=== PATIENT | male | born 1935 | race Hispanic/Latino ===

== ENCOUNTER 2016-09-08 17:56 | Emergency (ER) | payer MEDICARE ==
--- NOTE | 2016-09-08 18:43 | Emergency Department Report ---
HPI - General Chief Complaint: Medical Clearance Time Seen by Provider: 09/08/16 18:41 - HPI HPI: Patient is a 80-year-old white male sent from [facility] with weakness and dehydration. [facility] stated for the past 2 or 3 weeks patient has had decreased by mouth intake. He had to supplement his male with ensure. No fever chills or night sweats. History of alcoholic cirrhosis. ED Past Medical Hx - Past Medical History Previous Medical History?: Yes Hx GERD: Yes Hx COPD: Yes Hx Dementia: Yes Additional medical history: anemia, alcoholic liver disease, - Surgical History Past Surgical History?: No - Medications Home Medications: Home Medications Medication Instructions Recorded Confirmed Last Taken Type Cephalexin [Keflex] 500 mg PO Q12HR #20 cap 09/09/16 Unknown Rx ED Review of Systems ROS: Stated complaint: ABNORMAL LABS Other details as noted in HPI Comment: All other systems reviewed and negative Eyes: as per HPI Gastrointestinal: abdominal pain Physical Exam - Physical Exam Physical Exam: Gen. alert and oriented 3 in no distress Head atraumatic normocephalic Eyes PERR LA EOMI Chest regular rate and rhythm normal S1-S2 lungs clear bilaterally Abdomen soft nondistended Back no point tenderness paravertebral tenderness Neuro no focal deficit. Psych normal mood. ED Medical Decision Making - Lab Data Result diagrams: 09/08/16 19:11 09/08/16 19:11 Critical care attestation.: If time is entered above; I have spent that time in minutes in the direct care of this critically ill patient, excluding procedure time. ED Disposition Clinical Impression: Dehydration, Cystitis Disposition: DC-01 TO HOME OR SELFCARE Is pt being admited?: No Does the pt Need Aspirin: No Condition: Stable Instructions: Urinary Tract Infection in Men (ED) Prescriptions: Cephalexin [Keflex] 500 mg PO Q12HR #20 cap Referrals: PRIMARY CARE, [Primary Care Provider] - 3-5 Days
[2016-09-08 19:31] LABS: Basophils % (Auto) 1.1 % (0.0-1.8); Eosinophils % (Auto) 3.5 % (0.0-4.3); Hematocrit 34.9 % (35.5-45.6); Hemoglobin 11.6 gm/dl (11.8-15.2); Mean Corpuscular HGB Conc 33 % (32-34); Mean Corpuscular Hemoglobin 31 pg (28-32); Mean Corpuscular Volume 94 fl (84-94); Platelet Count 297 K/mm3 (140-440); Red Blood Count 3.72 M/mm3 (3.65-5.03); Red Cell Distribution Width 15.5 % (13.2-15.2); White Blood Count 7.9 K/mm3 (4.5-11.0)
[2016-09-08 20:04] LABS: Albumin 2.8 g/dL (3.9-5); Albumin/Globulin Ratio 0.5 %; BUN/Creatinine Ratio 41.42; Bilirubin,Total 0.5 mg/dL (0.1-1.2); Calcium 8.9 mg/dL (8.4-10.2); Chloride 87.3 mmol/L (98-107)
[2016-09-08 20:16] LABS: Potassium 4.3 mmol/L (3.6-5.0)
[2016-09-08 23:24] LABS: Urine Drugs of Abuse Note Disclamer
[2016-09-08] MEDS ORDERED: ROCEPHIN/NS 1 GM/50 ML 1 GM/50 ML BAG IV ONE (23:41)
[2016-09-09 00:15] LABS: Bacteria,Urine 2+ /HPF (Negative); Bilirubin,Urine NEG (Negative); Blood,Urine NEG (Negative); Ketones,Urine NEG (Negative); Leukocyte Esterase,Urine MOD (Negative); Mucus,Urine 3+ /HPF; Nitrite,Urine NEG (Negative); Urobilinogen,Urine < 2.0 mg/dL (<2.0)
[2016-09-09 00:24] LABS: WBC,Urine > 182.0 /HPF (0.0-6.0)
[2016-09-09 03:28] VITALS: BP 133/78
== END 2016-09-09 02:30 | disposition home or self-care (01) ==
LOC: ED 17:56
DX: N30.90 Cystitis, unspecified without hematuria (principal); E86.0 Dehydration; E11.9 Type 2 diabetes mellitus without complications; J44.9 Chronic obstructive pulmonary disease, unspecified
CPT/HCPCS: 36415; 80053; 80307; 81001; 85025; 93005; 93010; 96365; 96366; 99284; J0696

== ENCOUNTER 2017-02-02 11:14 | Inpatient (IN) | payer MEDICARE ==
--- NOTE | 2017-02-02 13:08 | Emergency Department Report ---
ED General Adult HPI - General Chief complaint: Recheck/Abnormal Lab/Rx Stated complaint: CRITICAL LABS Time Seen by Provider: 02/02/17 13:05 Source: patient, EMS Mode of arrival: Stretcher Limitations: Physical Limitation - History of Present Illness Initial comments: This is an 81-year-old man that resides in [facility]. He was sent by his physician for evaluation of a creatinine 1.4 and BUN of 47 on 11/16/2016 which apparently has recently increased I presume. The patient states that he has not been eating or drinking well lately. They have placed him on an sure. He is coherent and able to talk to me at this time. He is not complaining of pain. He denies headache chest pain abdominal pain. He does not complain of any respiratory symptoms he states he has not been coughing. He states that he urinates "a lot" of this appears to be baseline. He does admit to some weakness but states he's been weak for some time. -: Gradual Consistency: constant Improves with: none Worsens with: none Associated Symptoms: denies other symptoms, weakness Treatments Prior to Arrival: none - Related Data Previous Rx's Medication Instructions Recorded Last Taken Type Cephalexin [Keflex] 500 mg PO Q12HR #20 cap 09/09/16 Unknown Rx Allergies Allergy/AdvReac Type Severity Reaction Status Date / Time No Known Allergies Allergy Unverified 09/08/16 18:08 ED Review of Systems ROS: Stated complaint: CRITICAL LABS Other details as noted in HPI Constitutional: weakness. denies: chills, fever Eyes: denies: eye pain, eye discharge, vision change ENT: denies: ear pain, throat pain Respiratory: denies: cough, shortness of breath, wheezing Cardiovascular: denies: chest pain, palpitations Endocrine: no symptoms reported Gastrointestinal: denies: abdominal pain, nausea, diarrhea Genitourinary: frequency. denies: urgency, dysuria Musculoskeletal: denies: back pain, joint swelling, arthralgia Skin: denies: rash, lesions Neurological: denies: headache, weakness, paresthesias Psychiatric: denies: anxiety, depression Hematological/Lymphatic: denies: easy bleeding, easy bruising ED Past Medical Hx - Past Medical History Previous Medical History?: Yes Hx GERD: Yes Hx COPD: Yes Hx Dementia: Yes Additional medical history: anemia, alcoholic liver disease, - Social History Smoking Status: Former Smoker Substance Use Type: Alcohol - Medications Home Medications: Home Medications Medication Instructions Recorded Confirmed Last Taken Type Cephalexin [Keflex] 500 mg PO Q12HR #20 cap 09/09/16 Unknown Rx ED Physical Exam - General Limitations: Physical Limitation General appearance: alert, in no apparent distress - Head Head exam: Present: atraumatic, normocephalic - Eye Eye exam: Present: normal appearance - ENT ENT exam: Present: mucous membranes moist - Neck Neck exam: Present: normal inspection - Respiratory Respiratory exam: Present: normal lung sounds bilaterally. Absent: respiratory distress - Cardiovascular Cardiovascular Exam: Present: regular rate, normal rhythm. Absent: systolic murmur, diastolic murmur, rubs, gallop - GI/Abdominal GI/Abdominal exam: Present: soft, normal bowel sounds. Absent: distended, tenderness, guarding, rebound, rigid - Rectal Rectal exam: Present: deferred - Extremities Exam Extremities exam: Present: normal inspection - Back Exam Back exam: Present: normal inspection - Neurological Exam Neurological exam: Present: alert, oriented X3, CN II-XII intact. Absent: motor sensory deficit - Psychiatric Psychiatric exam: Present: normal affect, normal mood - Skin Skin exam: Present: warm, dry, intact, normal color. Absent: rash ED Course Vital Signs 02/02/17 13:27 Temperature 98.2 F Pulse Rate 85 Respiratory 13 Rate Blood Pressure 131/77 [Right] O2 Sat by Pulse 95 Oximetry - Reevaluation(s) Reevaluation #1: IV fluids. Admitted to the hospital service for further care and evaluation. Antibiotic coverage with ceftriaxone. Awaiting urinanalysis. 02/02/17 15:06 ED Medical Decision Making - Lab Data Result diagrams: 02/02/17 13:42 02/02/17 13:42 Laboratory Results - last 24 hr 02/02/17 02/02/17 02/02/17 13:41 13:42 13:42 WBC 11.1 H RBC 4.61 Hgb 13.7 Hct 41.5 MCV 90 MCH 30 MCHC 33 RDW 15.9 H Plt Count 405 Lymph % (Auto) 29.9 Harrison % (Auto) 8.3 H Eos % (Auto) 4.2 Baso % (Auto) 1.1 Lymph # 3.3 Harrison # 0.9 H Eos # 0.5 H Baso # 0.1 Seg Neutrophils % 56.5 Seg Neutrophils # 6.3 Sodium 131 L Potassium 4.3 Chloride 85.5 L Carbon Dioxide 28 Anion Gap 22 BUN 73 H Creatinine 2.4 H Estimated GFR 26 BUN/Creatinine Ratio 30 Glucose 109 H Calcium 9.2 Total Bilirubin 0.40 Direct Bilirubin < 0.2 AST 19 ALT 12 Alkaline Phosphatase 63 Total Protein 8.5 H Albumin 3.6 L Albumin/Globulin Ratio 0.7 Urine Bilirubin Neg Urine RBC (Auto) 155.0 Critical care attestation.: If time is entered above; I have spent that time in minutes in the direct care of this critically ill patient, excluding procedure time. ED Disposition Clinical Impression: Prerenal azotemia, Acute renal injury, Hyponatremia, Volume depletion Disposition: DC-09 OP ADMIT IP TO THIS HOSP Is pt being admited?: Yes Does the pt Need Aspirin: Yes Condition: Stable Referrals: PRIMARY CARE, [Primary Care Provider] - 3-5 Days Time of Disposition: 15:32
--- NOTE | 2017-02-02 13:57 | XRay Report ---
AP CHEST: HISTORY: Hypertension AP view of the chest demonstrates a normal mediastinal and cardiac contour with clear lungs and normal bony and soft tissue structures. IMPRESSION: Unremarkable AP chest.
[2017-02-02 14:11] LABS: Basophils % (Auto) 1.1 % (0.0-1.8); Eosinophils % (Auto) 4.2 % (0.0-4.3); Hematocrit 41.5 % (35.5-45.6); Hemoglobin 13.7 gm/dl (11.8-15.2); Mean Corpuscular HGB Conc 33 % (32-34); Mean Corpuscular Hemoglobin 30 pg (28-32); Mean Corpuscular Volume 90 fl (84-94); Platelet Count 405 K/mm3 (140-440); Red Blood Count 4.61 M/mm3 (3.65-5.03); Red Cell Distribution Width 15.9 % (13.2-15.2); White Blood Count 11.1 K/mm3 (4.5-11.0)
[2017-02-02 14:23] LABS: Alanine Aminotransferase 12 units/L (7-56); Albumin 3.6 g/dL (3.9-5); Albumin/Globulin Ratio 0.7 %; Alkaline Phosphatase 63 units/L (35-129); Anion Gap 22 mmol/L; BUN/Creatinine Ratio 30; Blood Urea Nitrogen 73 mg/dL (9-20); Calcium 9.2 mg/dL (8.4-10.2); Carbon Dioxide 28 mmol/L (22-30); Chloride 85.5 mmol/L (98-107); Glucose 109 mg/dL (75-100); Potassium 4.3 mmol/L (3.6-5.0); Sodium 131 mmol/L (137-145); Total Protein 8.5 g/dL (6.3-8.2)
[2017-02-02 14:24] LABS: Bilirubin,Direct < 0.2 mg/dL (0-0.2)
[2017-02-02 14:24] LABS: Bacteria,Urine 3+ /HPF (Negative); Bilirubin,Urine NEG (Negative); Blood,Urine MOD (Negative); Ketones,Urine NEG (Negative); Leukocyte Esterase,Urine MOD (Negative); Nitrite,Urine NEG (Negative); Urobilinogen,Urine < 2.0 mg/dL (<2.0)
[2017-02-02 14:33] LABS: WBC,Urine > 182.0 /HPF (0.0-6.0)
[2017-02-02] MEDS ORDERED: ROCEPHIN/NS 1 GM/50 ML 1 GM/50 ML BAG IV ONE (14:33)
[2017-02-02] MEDS ORDERED: MILK OF MAGNESIA PO PRN (15:06)
[2017-02-02] MEDS ORDERED: PROVENTIL IH PRN (15:06)
[2017-02-02] MEDS ORDERED: DULCOLAX PR PRN (15:06)
[2017-02-02] MEDS ORDERED: TYLENOL PO PRN (15:06)
[2017-02-02] MEDS ORDERED: cefTRIAXone 1 GM in NACL 0.9% 20 ML IV ONE (15:30)
[2017-02-02] MEDS ORDERED: BABY ASPIRIN PO ONE (15:33)
--- NOTE | 2017-02-02 16:29 | Ultrasound Report ---
FINAL REPORT EXAM: US RENAL BILAT HISTORY: acute renal failure TECHNIQUE: Ultrasound of the kidneys PRIORS: None. FINDINGS: Examination the kidneys demonstrates both to be normal in size and have normal cortical thickness. The right and left kidneys measure 11.0 cm and 10.7 cm in craniocaudal length, respectively. Both kidneys are echogenic which can be associated with chronic medical renal disease. No evidence for calculi, hydronephrosis, or solid mass is seen in either kidney. Numerous cysts are present in each kidney. On the right, the largest is located in the mid pole measuring 2.1 x 1.5 x 1.9 cm. On the left, the largest is in the upper pole measuring 3.3 x 2.6 x 2.7 cm. All of these cysts have benign characteristics without thickened wall or internal debris. The urinary bladder shows no intraluminal abnormality or wall thickening. Incidental note is made of multiple gallstones in the gallbladder. IMPRESSION: 1. Increased echogenicity of renal cortex bilaterally consistent with chronic medical renal disease 2. Numerous bilateral cysts, likely benign. The largest is in the upper pole of the left kidney. 3. Incidentally noted cholelithiasis
--- NOTE | 2017-02-02 17:51 | History and Physical Report ---
History of Present Illness Date of admission: 02/02/17 15:07 Chief complaint: I urinate a lot, and im feeling weak History of present illness: 81 YO Male resident of [facility] with Dementia, Debility, GERD, COPD, presents to ED for evaluation. Pt is lethargic and has decreased cognition , and unable to provide detailed history. History taken from SNF staff, ED staff , and medical record. SNF staff report decreased oral intake and increased confusion over the past week. EMS notified and patient transported to [facility] for further evaluation and treatment. Pt seen and evaluated in ED and found to have UTI, ARF, and encephalopathy. Pt treated with IV abx, IVF, and admitted to medical floor. No reports of fever, chills, CP, Palpitations, NVD< Syncope, Trauma, BRBPR, Abdominal Pain, Productive cough, or recent ill contacts. Past History Past Medical History: COPD, GERD, other (Dementia, Debility, ) Past Surgical History: No surgical history, Other (reviewed) Social history: single. denies: smoking, alcohol abuse, prescription drug abuse Family history: no significant family history (reviewed) Medications and Allergies Allergies Allergy/AdvReac Type Severity Reaction Status Date / Time No Known Allergies Allergy Unverified 09/08/16 18:08 Home Medications Medication Instructions Recorded Confirmed Last Taken Type Allopurinol [Zyloprim] 600 mg PO HS 02/02/17 02/02/17 Unknown History Budesonide/Formoterol Fumarate 1 puff IH BID 02/02/17 02/02/17 Unknown History [Symbicort 80-4.5 Mcg Inhaler] Colchicine [Mitigare] 0.6 mg PO BID 02/02/17 02/02/17 Unknown History Dorzolamide HCl/Timolol Maleat 1 drop OP Q8H 02/02/17 02/02/17 Unknown History [Cosopt Eye Drops] Gabapentin [Neurontin] 300 mg PO BID 02/02/17 02/02/17 Unknown History Ketoconazole [Nizoral] 1 applic TP QWEEK 02/02/17 02/02/17 Unknown History Latanoprost 0.005% [Xalatan 0.005%] 1 drop OP HS 02/02/17 02/02/17 Unknown History Loratadine [Claritin] 10 mg PO BID 02/02/17 02/02/17 Unknown History Mag Hydrox/Aluminum Hyd/Simeth 30 ml PO Q6H PRN 02/02/17 02/02/17 Unknown History [Mellisa-Lanta Liquid] Magnesium Oxide [Mag-Ox] 400 mg PO BID 02/02/17 02/02/17 Unknown History Melatonin [Melatin] 3 mg PO HS 02/02/17 02/02/17 Unknown History Mirtazapine [Remeron] 15 mg PO HS 02/02/17 02/02/17 Unknown History Salicylic Acid 1 applicatio TP 2XW 02/02/17 02/02/17 Unknown History traMADol [Ultram] 50 mg PO Q8H PRN 02/02/17 02/02/17 Unknown History Active Meds: Active Medications Acetaminophen (Tylenol) 650 mg PO Q4H PRN PRN Reason: Pain MILD(1-3)/Fever >100.5/[place] Albuterol (Proventil) 2.5 mg IH Q4HRT PRN PRN Reason: Shortness Of Breath Bisacodyl (Dulcolax) 10 mg NM QDAY PRN PRN Reason: Constipation unrelieved by MOM Sodium Chloride (Nacl 0.45% 1000 Ml) 1,000 mls @ 100 mls/hr IV DIRECT TRI Magnesium Hydroxide (Milk Of Magnesia) 30 ml PO Q4H PRN PRN Reason: Constipation Ondansetron HCl (Zofran) 4 mg IV Q8H PRN PRN Reason: N/V unrelieved by Reglan Review of Systems ROS unobtainable: due to mental status Exam - Constitutional Vitals: Temp Pulse Resp BP Pulse Ox 98.2 F 76 18 102/58 97 02/02/17 13:27 02/02/17 17:00 02/02/17 17:00 02/02/17 17:00 02/02/17 17:00 General appearance: Present: mild distress, cachectic - EENT Eyes: Present: PERRL ENT: hearing intact, clear oral mucosa - Neck Neck: Present: supple, normal ROM - Respiratory Respiratory effort: normal Respiratory: bilateral: diminished - Cardiovascular Heart Sounds: Present: S1 & S2. Absent: rub, click - Extremities Extremities: pulses symmetrical, No edema Peripheral Pulses: within normal limits - Abdominal General gastrointestinal: Present: soft, non-tender, non-distended, normal bowel sounds Male genitourinary: Present: normal - Integumentary Integumentary: Present: clear, dry - Musculoskeletal Musculoskeletal: generalized weakness - Psychiatric Psychiatric: no intact judgment & insight, no memory intact - Neurologic Neurologic: no gait normal Results - Labs CBC & Chem 7: 02/02/17 13:42 02/02/17 13:42 Labs: Abnormal lab results 02/02/17 02/02/17 02/02/17 Range/Units 13:41 13:42 13:42 WBC 11.1 H (4.5-11.0) K/mm3 RDW 15.9 H (13.2-15.2) % Oxford % (Auto) 8.3 H (0.0-7.3) % Oxford # 0.9 H (0.0-0.8) K/mm3 Eos # 0.5 H (0.0-0.4) K/mm3 Sodium 131 L (137-145) mmol/L Chloride 85.5 L (98-107) mmol/L BUN 73 H (9-20) mg/dL Creatinine 2.4 H (0.8-1.5) mg/dL Glucose 109 H (75-100) mg/dL Total Protein 8.5 H (6.3-8.2) g/dL Albumin 3.6 L (3.9-5) g/dL Urine WBC (Auto) > 182.0 H (0.0-6.0) /HPF Assessment and Plan - Patient Problems (1) UTI (urinary tract infection) Current Visit: Yes Status: Acute Plan to address problem: IV abx, IVF, monitor uop q shift, (2) ARF (acute renal failure) Current Visit: Yes Status: Acute Plan to address problem: IVF resuscitation, supportive care. (3) Hyponatremia syndrome Current Visit: Yes Status: Acute Plan to address problem: IVF resuscitation, repeat bmp (4) Encephalopathy Current Visit: Yes Status: Acute Plan to address problem: treat UTI, IV abx, neuro checks, fall precautions, aspiration precautions. (5) DVT prophylaxis Current Visit: Yes Status: Acute
[2017-02-02] MEDS ORDERED: BABY ASPIRIN ONE (17:52)
[2017-02-02] MEDS ORDERED: ULTRAM PO PRN (18:06)
[2017-02-02] MEDS ORDERED: ALUM-MAG HYDROX-SIMETH 200-200-20MG/5ML PO PRN (18:06)
[2017-02-02] MEDS ORDERED: NON-FORMULARY (Dorzolamide Hcl/Timolol Maleat [Cosopt Eye Drops] 1 DROP) OP SCH (18:15)
[2017-02-02] MEDS ORDERED: SALICYLIC ACID TP SCH (18:15)
[2017-02-02] MEDS: PULMICORT IH SCH (20:00)
[2017-02-02] MEDS: BROVANA NEBU IH SCH (20:00)
[2017-02-02] MEDS ORDERED: ZYLOPRIM PO SCH (22:00)
[2017-02-02] MEDS ORDERED: BUDESONIDE IH SCH (22:00)
[2017-02-02] MEDS ORDERED: NON-FORMULARY (Melatonin [Melatin] 3 MG) PO SCH (22:00)
[2017-02-02] MEDS: COLCHICINE 0.6 MG PO SCH (22:00)
[2017-02-02] MEDS ORDERED: CLARITIN PO SCH (22:00)
[2017-02-02] MEDS ORDERED: FORMOTEROL FUMARATE IH SCH (22:00)
[2017-02-03] MEDS: NEURONTIN PO SCH ×3 (02:22→21:04)
[2017-02-03] MEDS: MAG-OX PO SCH ×3 (02:23→21:04)
[2017-02-03] MEDS: ZYLOPRIM PO SCH ×2 (02:23→21:05)
[2017-02-03] MEDS: REMERON PO SCH ×2 (02:23→21:04)
[2017-02-03] MEDS: XALATAN 0.005% OD SCH (02:24)
[2017-02-03] MEDS: BROVANA NEBU IH SCH ×2 (08:50→20:22)
[2017-02-03] MEDS: PULMICORT IH SCH ×2 (08:50→20:23)
[2017-02-03 10:13] LABS: Calcium 9.2 mg/dL (8.4-10.2); Chloride 88.7 mmol/L (98-107); Potassium 4.2 mmol/L (3.6-5.0)
--- NOTE | 2017-02-03 15:04 | Progress Note ---
Assessment and Plan / UTI (urinary tract infection) IV abx, IVF, monitor uop q shift, follow cx /ARF (acute renal failure) vs CKD IVF resuscitation, supportive care. renal US showed medical renal disease, baseline unknown /Hyponatremia due to dehydration IVF resuscitation, repeat bmp /Acute metabolic/toxic Encephalopathy now at baseline per family treat UTI, IV abx, neuro checks, fall precautions, aspiration precautions. /h/o alcohol abuse no acute issue now /right eye conjunctivitis will place on erythromycin ointment /DVT prophylaxis heparin Physical exam: General appearance: Present: mild distress, cachectic - EENT Eyes: Present: rt eye congestion with purulent discharge at the [place] ENT: hearing intact, clear oral mucosa - Neck Neck: Present: supple, normal ROM - Respiratory Respiratory effort: normal Respiratory: bilateral: diminished - Cardiovascular Heart Sounds: Present: S1 & S2. Absent: rub, click - Extremities Extremities: pulses symmetrical, No edema Peripheral Pulses: within normal limits - Abdominal General gastrointestinal: Present: soft, non-tender, non-distended, normal bowel sounds Male genitourinary: Present: normal - Integumentary Integumentary: Present: clear, dry - Musculoskeletal Musculoskeletal: generalized weakness - Psychiatric Psychiatric: no intact judgment & insight, no memory intact - Neurologic Neurologic: no gait normal Subjective Date of service: 02/03/17 Interval history: pt seen and examined c/o no chest pain or abdominal pain updated family at bedside Objective - Constitutional Vitals: Vital Signs - 12hr 02/03/17 02/03/17 02/03/17 03:16 03:20 03:26 Temperature Pulse Rate 99 H 105 H 100 H Pulse Rate [ Anterior Bilateral Throughout] Respiratory 26 H 18 22 Rate Respiratory Rate [Anterior Bilateral Throughout] Blood Pressure 122/70 122/70 122/70 O2 Sat by Pulse 89 92 89 Oximetry 02/03/17 02/03/17 02/03/17 03:30 03:36 03:40 Temperature Pulse Rate 102 H 102 H 98 H Pulse Rate [ Anterior Bilateral Throughout] Respiratory 24 15 15 Rate Respiratory Rate [Anterior Bilateral Throughout] Blood Pressure 122/70 82/40 82/40 O2 Sat by Pulse 85 94 90 Oximetry 02/03/17 02/03/17 02/03/17 03:46 03:50 03:56 Temperature Pulse Rate 100 H 96 H 96 H Pulse Rate [ Anterior Bilateral Throughout] Respiratory 21 19 21 Rate Respiratory Rate [Anterior Bilateral Throughout] Blood Pressure 82/40 82/40 82/40 O2 Sat by Pulse 87 87 90 Oximetry 02/03/17 02/03/17 02/03/17 04:00 04:06 04:10 Temperature Pulse Rate 96 H 97 H 98 H Pulse Rate [ Anterior Bilateral Throughout] Respiratory 22 20 22 Rate Respiratory Rate [Anterior Bilateral Throughout] Blood Pressure 87/54 87/54 87/54 O2 Sat by Pulse 87 90 88 Oximetry 02/03/17 02/03/17 02/03/17 04:16 04:20 04:26 Temperature Pulse Rate 97 H 95 H 98 H Pulse Rate [ Anterior Bilateral Throughout] Respiratory 22 22 22 Rate Respiratory Rate [Anterior Bilateral Throughout] Blood Pressure 87/54 87/54 87/54 O2 Sat by Pulse 86 93 87 Oximetry 02/03/17 02/03/17 02/03/17 04:30 04:36 04:40 Temperature Pulse Rate 94 H 100 H 90 Pulse Rate [ Anterior Bilateral Throughout] Respiratory 21 18 18 Rate Respiratory Rate [Anterior Bilateral Throughout] Blood Pressure 101/59 101/59 101/59 O2 Sat by Pulse 91 90 88 Oximetry 02/03/17 02/03/17 02/03/17 04:46 04:50 04:56 Temperature Pulse Rate 93 H 93 H 97 H Pulse Rate [ Anterior Bilateral Throughout] Respiratory 18 21 20 Rate Respiratory Rate [Anterior Bilateral Throughout] Blood Pressure 101/59 101/59 101/59 O2 Sat by Pulse 94 91 92 Oximetry 02/03/17 02/03/17 02/03/17 05:00 05:06 05:10 Temperature Pulse Rate 94 H 97 H 95 H Pulse Rate [ Anterior Bilateral Throughout] Respiratory 16 21 19 Rate Respiratory Rate [Anterior Bilateral Throughout] Blood Pressure 107/58 107/58 107/58 O2 Sat by Pulse 88 89 93 Oximetry 02/03/17 02/03/17 02/03/17 05:16 05:20 05:26 Temperature Pulse Rate 94 H 94 H 94 H Pulse Rate [ Anterior Bilateral Throughout] Respiratory 19 14 25 H Rate Respiratory Rate [Anterior Bilateral Throughout] Blood Pressure 107/58 107/58 107/58 O2 Sat by Pulse 94 94 86 Oximetry 02/03/17 02/03/17 02/03/17 05:30 05:36 05:40 Temperature Pulse Rate 97 H 90 89 Pulse Rate [ Anterior Bilateral Throughout] Respiratory 21 26 H 22 Rate Respiratory Rate [Anterior Bilateral Throughout] Blood Pressure 108/66 108/66 108/66 O2 Sat by Pulse 94 88 88 Oximetry 02/03/17 02/03/17 02/03/17 05:46 05:50 05:56 Temperature Pulse Rate 91 H 90 97 H Pulse Rate [ Anterior Bilateral Throughout] Respiratory 23 20 24 Rate Respiratory Rate [Anterior Bilateral Throughout] Blood Pressure 108/66 108/66 108/66 O2 Sat by Pulse 87 92 93 Oximetry 02/03/17 02/03/17 02/03/17 06:00 06:06 06:10 Temperature Pulse Rate 97 H 101 H 108 H Pulse Rate [ Anterior Bilateral Throughout] Respiratory 22 14 19 Rate Respiratory Rate [Anterior Bilateral Throughout] Blood Pressure 108/66 125/74 125/74 O2 Sat by Pulse 94 92 94 Oximetry 02/03/17 02/03/17 02/03/17 06:16 06:20 06:26 Temperature Pulse Rate 96 H 93 H 97 H Pulse Rate [ Anterior Bilateral Throughout] Respiratory 21 15 19 Rate Respiratory Rate [Anterior Bilateral Throughout] Blood Pressure 125/74 125/74 125/74 O2 Sat by Pulse 94 95 96 Oximetry 02/03/17 02/03/17 02/03/17 06:30 06:36 06:40 Temperature Pulse Rate 97 H 105 H 102 H Pulse Rate [ Anterior Bilateral Throughout] Respiratory 19 15 23 Rate Respiratory Rate [Anterior Bilateral Throughout] Blood Pressure 125/74 93/71 93/71 O2 Sat by Pulse 94 90 94 Oximetry 02/03/17 02/03/17 02/03/17 06:46 06:50 06:56 Temperature Pulse Rate 96 H 106 H 98 H Pulse Rate [ Anterior Bilateral Throughout] Respiratory 23 12 22 Rate Respiratory Rate [Anterior Bilateral Throughout] Blood Pressure 93/71 93/71 93/71 O2 Sat by Pulse 92 92 93 Oximetry 02/03/17 02/03/17 02/03/17 07:00 07:06 07:10 Temperature Pulse Rate 94 H 95 H 93 H Pulse Rate [ Anterior Bilateral Throughout] Respiratory 21 22 22 Rate Respiratory Rate [Anterior Bilateral Throughout] Blood Pressure 108/57 108/57 108/57 O2 Sat by Pulse 90 91 94 Oximetry 02/03/17 02/03/17 02/03/17 07:16 07:20 07:30 Temperature Pulse Rate 92 H 95 H 92 H Pulse Rate [ Anterior Bilateral Throughout] Respiratory 20 21 17 Rate Respiratory Rate [Anterior Bilateral Throughout] Blood Pressure 98/69 O2 Sat by Pulse 90 91 92 Oximetry 02/03/17 02/03/17 02/03/17 07:40 07:50 08:00 Temperature Pulse Rate 92 H 92 H 93 H Pulse Rate [ Anterior Bilateral Throughout] Respiratory 20 20 24 Rate Respiratory Rate [Anterior Bilateral Throughout] Blood Pressure 98/69 98/69 89/54 O2 Sat by Pulse 88 88 88 Oximetry 02/03/17 02/03/17 02/03/17 08:10 08:20 08:30 Temperature Pulse Rate 87 91 H 87 Pulse Rate [ Anterior Bilateral Throughout] Respiratory 23 22 19 Rate Respiratory Rate [Anterior Bilateral Throughout] Blood Pressure 89/54 97/55 107/63 O2 Sat by Pulse 91 90 91 Oximetry 02/03/17 02/03/17 02/03/17 08:40 08:50 09:00 Temperature Pulse Rate 90 94 H 89 Pulse Rate [ 93 H Anterior Bilateral Throughout] Respiratory 20 17 19 Rate Respiratory 21 Rate [Anterior Bilateral Throughout] Blood Pressure 107/63 107/63 114/75 O2 Sat by Pulse 91 93 99 Oximetry 02/03/17 02/03/17 02/03/17 09:04 09:07 09:10 Temperature Pulse Rate 95 H Pulse Rate [ 91 H Anterior Bilateral Throughout] Respiratory 21 Rate Respiratory 18 Rate [Anterior Bilateral Throughout] Blood Pressure 114/75 O2 Sat by Pulse 92 94 Oximetry 02/03/17 02/03/17 02/03/17 09:20 09:30 09:40 Temperature Pulse Rate 93 H 96 H 97 H Pulse Rate [ Anterior Bilateral Throughout] Respiratory 15 22 13 Rate Respiratory Rate [Anterior Bilateral Throughout] Blood Pressure 114/75 116/71 116/71 O2 Sat by Pulse 92 92 93 Oximetry 02/03/17 02/03/17 02/03/17 09:50 10:00 10:10 Temperature Pulse Rate 94 H 95 H 100 H Pulse Rate [ Anterior Bilateral Throughout] Respiratory 13 15 20 Rate Respiratory Rate [Anterior Bilateral Throughout] Blood Pressure 116/71 129/69 129/69 O2 Sat by Pulse 96 88 92 Oximetry 02/03/17 02/03/17 02/03/17 10:20 10:30 11:07 Temperature Pulse Rate 96 H 98 H 105 H Pulse Rate [ Anterior Bilateral Throughout] Respiratory 18 19 20 Rate Respiratory Rate [Anterior Bilateral Throughout] Blood Pressure 129/69 129/69 162/85 O2 Sat by Pulse 92 90 Oximetry 02/03/17 02/03/17 02/03/17 11:10 11:20 11:30 Temperature Pulse Rate 108 H 102 H 96 H Pulse Rate [ Anterior Bilateral Throughout] Respiratory 26 H 24 22 Rate Respiratory Rate [Anterior Bilateral Throughout] Blood Pressure 162/85 162/85 124/72 O2 Sat by Pulse 93 88 92 Oximetry 02/03/17 02/03/17 02/03/17 11:40 11:50 12:00 Temperature Pulse Rate 103 H 105 H 100 H Pulse Rate [ Anterior Bilateral Throughout] Respiratory 23 20 19 Rate Respiratory Rate [Anterior Bilateral Throughout] Blood Pressure 124/72 124/72 124/72 O2 Sat by Pulse 91 93 90 Oximetry 02/03/17 02/03/17 02/03/17 12:10 12:20 12:30 Temperature Pulse Rate 105 H 106 H 102 H Pulse Rate [ Anterior Bilateral Throughout] Respiratory 25 H 16 24 Rate Respiratory Rate [Anterior Bilateral Throughout] Blood Pressure 124/72 124/72 115/69 O2 Sat by Pulse 84 93 90 Oximetry 02/03/17 02/03/17 02/03/17 12:40 12:50 13:00 Temperature Pulse Rate 102 H 107 H 109 H Pulse Rate [ Anterior Bilateral Throughout] Respiratory 24 21 16 Rate Respiratory Rate [Anterior Bilateral Throughout] Blood Pressure 114/69 114/69 124/75 O2 Sat by Pulse 89 91 89 Oximetry 02/03/17 14:49 Temperature 97.7 F Pulse Rate 98 H Pulse Rate [ Anterior Bilateral Throughout] Respiratory 18 Rate Respiratory Rate [Anterior Bilateral Throughout] Blood Pressure 128/101 O2 Sat by Pulse 94 Oximetry - Labs CBC & Chem 7: 02/02/17 13:42 02/03/17 09:45 Labs: Abnormal lab results 02/03/17 02/03/17 Range/Units 09:45 10:26 Sodium 132 L (137-145) mmol/L Chloride 88.7 L (98-107) mmol/L BUN 71 H (9-20) mg/dL Creatinine 2.4 H (0.8-1.5) mg/dL Glucose 108 H (75-100) mg/dL POC Glucose 110 H (70-105)
[2017-02-03] MEDS: CLARITIN PO SCH (15:15)
[2017-02-03] MEDS: cefTRIAXone 1 GM in NACL 0.9% 20 ML IV SCH (15:15)
[2017-02-03] MEDS: COLCHICINE 0.6 MG PO SCH (15:18)
[2017-02-03] MEDS: ERYTHROMYCIN OPHTH OINT OU SCH ×2 (16:56→21:03)
[2017-02-03] MEDS: COLCRYS PO SCH (16:56)
[2017-02-04] MEDS: XALATAN 0.005% OD SCH ×2 (04:15→22:30)
[2017-02-04] MEDS: ERYTHROMYCIN OPHTH OINT OU SCH ×3 (06:09→22:31)
[2017-02-04] MEDS: BROVANA NEBU IH SCH ×2 (07:28→19:51)
[2017-02-04] MEDS: PULMICORT IH SCH ×2 (07:29→19:51)
[2017-02-04] MEDS: MAG-OX PO SCH ×2 (10:18→22:32)
[2017-02-04] MEDS: COLCRYS PO SCH (10:18)
[2017-02-04] MEDS: CLARITIN PO SCH (10:18)
[2017-02-04] MEDS: NEURONTIN PO SCH ×2 (10:18→22:32)
[2017-02-04] MEDS: cefTRIAXone 1 GM in NACL 0.9% 20 ML IV SCH (10:19)
[2017-02-04] MEDS: AUGMENTIN 875 MG PO SCH ×2 (14:25→22:32)
--- NOTE | 2017-02-04 21:55 | Progress Note ---
Assessment and Plan / UTI (urinary tract infection) monitor uop q shift, follow cx will change abx to augmentin, pt still does not have any access /ARF (acute renal failure) vs CKD IVF resuscitation, supportive care. renal US showed medical renal disease, baseline unknown /Hyponatremia due to dehydration cont IVF resuscitation as soon as access available, repeat bmp encourage oral intake /Acute metabolic/toxic Encephalopathy now at baseline per family treat UTI, IV abx, neuro checks, fall precautions, aspiration precautions. /h/o alcohol abuse no acute issue now /right eye conjunctivitis will cont on erythromycin ointment /DVT prophylaxis heparin Physical exam: General appearance: Present: mild distress, cachectic - EENT Eyes: Present: rt eye congestion with purulent discharge at the [place] [facility]: hearing intact, clear oral mucosa - Neck Neck: Present: supple, normal ROM - Respiratory Respiratory effort: normal Respiratory: bilateral: diminished - Cardiovascular Heart Sounds: Present: S1 & S2. Absent: rub, click - Extremities Extremities: pulses symmetrical, No edema Peripheral Pulses: within normal limits - Abdominal General gastrointestinal: Present: soft, non-tender, non-distended, normal bowel sounds Male genitourinary: Present: normal - Integumentary Integumentary: Present: clear, dry - Musculoskeletal Musculoskeletal: generalized weakness - Psychiatric Psychiatric: no intact judgment & insight, no memory intact - Neurologic Neurologic: no gait normal Subjective Date of service: 02/04/17 Interval history: pt seen and examined c/o no chest pain or abdominal pain he did not get abx as no midline placed yet and he is hard to stick discussed with RN to change med to po Objective - Constitutional Vitals: Vital Signs - 12hr 02/04/17 02/04/17 02/04/17 12:39 16:19 19:45 Temperature 97.5 F L 97.7 F 99.1 F Pulse Rate 83 84 85 Pulse Rate [ Anterior Bilateral Throughout] Respiratory 18 18 20 Rate Respiratory Rate [Anterior Bilateral Throughout] Blood Pressure 129/71 129/73 111/56 O2 Sat by Pulse 97 95 95 Oximetry 02/04/17 02/04/17 02/04/17 19:53 19:55 20:05 Temperature Pulse Rate Pulse Rate [ 85 91 H Anterior Bilateral Throughout] Respiratory Rate Respiratory 24 24 Rate [Anterior Bilateral Throughout] Blood Pressure O2 Sat by Pulse 96 Oximetry - Labs CBC & Chem 7: 02/05/17 05:05 02/05/17 05:05
[2017-02-04] MEDS: REMERON PO SCH (22:32)
[2017-02-04] MEDS: ZYLOPRIM PO SCH (22:32)
[2017-02-05 06:11] LABS: Basophils % (Auto) 0.7 % (0.0-1.8); Hematocrit 42.2 % (35.5-45.6); Hemoglobin 14.3 gm/dl (11.8-15.2); Mean Corpuscular HGB Conc 34 % (32-34); Mean Corpuscular Hemoglobin 31 pg (28-32); Mean Corpuscular Volume 91 fl (84-94); Platelet Count 370 K/mm3 (140-440); Red Blood Count 4.64 M/mm3 (3.65-5.03); Red Cell Distribution Width 15.5 % (13.2-15.2); White Blood Count 18.8 K/mm3 (4.5-11.0)
[2017-02-05 06:25] LABS: Calcium 9.6 mg/dL (8.4-10.2); Chloride 83.5 mmol/L (98-107); Potassium 3.8 mmol/L (3.6-5.0)
[2017-02-05] MEDS: ERYTHROMYCIN OPHTH OINT OU SCH ×3 (06:54→22:37)
[2017-02-05] MEDS: BROVANA NEBU IH SCH ×2 (09:03→19:10)
[2017-02-05] MEDS: PULMICORT IH SCH ×2 (09:03→19:10)
[2017-02-05] MEDS ORDERED: NIZORAL TP SCH (10:00)
[2017-02-05] MEDS: NEURONTIN PO SCH ×2 (10:54→21:57)
[2017-02-05] MEDS: CLARITIN PO SCH (10:54)
[2017-02-05] MEDS: MAG-OX PO SCH ×2 (10:54→21:57)
[2017-02-05] MEDS: AUGMENTIN 500 MG PO SCH ×2 (10:54→22:36)
[2017-02-05] MEDS: COLCRYS PO SCH (10:56)
[2017-02-05] MEDS: MEGACE PO SCH (12:42)
--- NOTE | 2017-02-05 14:46 | Progress Note ---
Assessment and Plan / UTI (urinary tract infection) monitor uop q shift, follow cx cont abx to augmentin, /ARF (acute renal failure) vs CKD IVF resuscitation, supportive care. renal US showed medical renal disease, baseline unknown Cr 2.7 today, will consult nephrology /Hyponatremia due to dehydration cont IVF resuscitation as soon as access available, repeat bmp encourage oral intake /Acute metabolic/toxic Encephalopathy now at baseline per family treat UTI, neuro checks, fall precautions, aspiration precautions. /h/o alcohol abuse no acute issue now /right eye conjunctivitis will cont on erythromycin ointment /h/o gout uric acid not elevated on colchicine and allopurinol /DVT prophylaxis heparin Physical exam: General appearance: Present: mild distress, cachectic - EENT Eyes: Present: rt eye congestion with purulent discharge at the [place] [facility]: hearing intact, clear oral mucosa - Neck Neck: Present: supple, normal ROM - Respiratory Respiratory effort: normal Respiratory: bilateral: diminished - Cardiovascular Heart Sounds: Present: S1 & S2. Absent: rub, click - Extremities Extremities: pulses symmetrical, No edema Peripheral Pulses: within normal limits - Abdominal General gastrointestinal: Present: soft, non-tender, non-distended, normal bowel sounds Male genitourinary: Present: normal - Integumentary Integumentary: Present: clear, dry - Musculoskeletal Musculoskeletal: generalized weakness - Psychiatric Psychiatric: no intact judgment & insight, no memory intact - Neurologic Neurologic: no gait normal Subjective Date of service: 02/05/17 Interval history: pt seen and examined c/o no chest pain or abdominal pain c/o left great toe pain poor appetite, sister at bedside , updated Objective - Constitutional Vitals: Vital Signs - 12hr 02/05/17 02/05/17 02/05/17 04:03 08:00 08:42 Temperature 98.7 F 98.3 F Pulse Rate 109 H 104 H Pulse Rate [ 101 H Anterior Bilateral Throughout] Respiratory 16 22 Rate Respiratory 18 Rate [Anterior Bilateral Throughout] Blood Pressure 128/75 109/74 O2 Sat by Pulse 89 91 Oximetry 02/05/17 02/05/17 09:04 12:07 Temperature 99.0 F Pulse Rate 103 H Pulse Rate [ 101 H Anterior Bilateral Throughout] Respiratory 22 Rate Respiratory 17 Rate [Anterior Bilateral Throughout] Blood Pressure 104/64 O2 Sat by Pulse 94 93 Oximetry - Labs CBC & Chem 7: 02/05/17 05:05 02/06/17 04:46 Labs: Abnormal lab results 02/05/17 02/05/17 02/05/17 Range/Units 05:05 05:05 05:05 WBC 18.8 H (4.5-11.0) K/mm3 RDW 15.5 H (13.2-15.2) % Lymph % (Auto) 11.1 L (13.4-35.0) % [place] # 1.2 H (0.0-0.8) K/mm3 Seg Neutrophils % 80.8 H (40.0-70.0) % Seg Neutrophils # 15.2 H (1.8-7.7) K/mm3 Sodium 133 L (137-145) mmol/L Chloride 83.5 L (98-107) mmol/L BUN 69 H (9-20) mg/dL Creatinine 2.7 H (0.8-1.5) mg/dL Glucose 136 H (75-100) mg/dL Uric Acid < 0.2 L (3.5-7.6) mg/dL
[2017-02-05] MEDS: XALATAN 0.005% OD SCH (21:56)
[2017-02-05] MEDS: ZYLOPRIM PO SCH (21:56)
[2017-02-05] MEDS: REMERON PO SCH (21:58)
[2017-02-06] MEDS: ERYTHROMYCIN OPHTH OINT OU SCH ×3 (05:56→22:32)
[2017-02-06 06:26] LABS: Chloride 80.9 mmol/L (98-107); Potassium 3.4 mmol/L (3.6-5.0)
[2017-02-06] MEDS: PULMICORT IH SCH ×2 (07:46→19:41)
[2017-02-06] MEDS: BROVANA NEBU IH SCH ×2 (07:46→19:41)
--- NOTE | 2017-02-06 07:55 | Consultation ---
History of Present Illness - Reason for Consult Consult date: 02/06/17 acute renal failure - History of Present Illness 81 years old male resident of [facility] with Dementia, Debility, GERD, COPD, presents to ED for evaluation. Pt is lethargic and has decreased cognition, and unable to provide detailed history. We are consulted for evaluation of elevated CR. His CR was at 1.29 September 2016 and on this admission CR senia to 2.4 and now at 2.9. No contrast exposure. No NSAIDs. Past History Past Medical History: COPD, GERD, other (Dementia, Debility, ) Past Surgical History: No surgical history, Other (reviewed) Social history: single. denies: smoking, alcohol abuse, prescription drug abuse Family history: no significant family history (reviewed) Medications and Allergies Allergies Allergy/AdvReac Type Severity Reaction Status Date / Time No Known Allergies Allergy Unverified 09/08/16 18:08 Home Medications Medication Instructions Recorded Confirmed Last Taken Type Allopurinol [Zyloprim] 600 mg PO HS 02/02/17 02/02/17 Unknown History Budesonide/Formoterol Fumarate 1 puff IH BID 02/02/17 02/02/17 Unknown History [Symbicort 80-4.5 Mcg Inhaler] Colchicine [Mitigare] 0.6 mg PO BID 02/02/17 02/02/17 Unknown History Dorzolamide HCl/Timolol Maleat 1 drop OP Q8H 02/02/17 02/02/17 Unknown History [Cosopt Eye Drops] Gabapentin [Neurontin] 300 mg PO BID 02/02/17 02/02/17 Unknown History Ketoconazole [Nizoral] 1 applic TP QWEEK 02/02/17 02/02/17 Unknown History Latanoprost 0.005% [Xalatan 0.005%] 1 drop OP HS 02/02/17 02/02/17 Unknown History Loratadine [Claritin] 10 mg PO BID 02/02/17 02/02/17 Unknown History Mag Hydrox/Aluminum Hyd/Simeth 30 ml PO Q6H PRN 02/02/17 02/02/17 Unknown History [Mellisa-Lanta Liquid] Magnesium Oxide [Mag-Ox] 400 mg PO BID 02/02/17 02/02/17 Unknown History Melatonin [Melatin] 3 mg PO HS 02/02/17 02/02/17 Unknown History Mirtazapine [Remeron] 15 mg PO HS 02/02/17 02/02/17 Unknown History Salicylic Acid 1 applicatio TP 2XW 02/02/17 02/02/17 Unknown History traMADol [Ultram] 50 mg PO Q8H PRN 02/02/17 02/02/17 Unknown History Active Meds: Active Medications Acetaminophen (Tylenol) 650 mg PO Q4H PRN PRN Reason: Pain MILD(1-3)/Fever >100.5/[place] Al Hydrox/Mg Hydrox/Simethicone (Alum-Mag Hydrox-Simeth 364-325-39ty/5ml) 30 ml PO Q6H PRN PRN Reason: Indigestion Albuterol (Proventil) 2.5 mg IH Q4HRT PRN PRN Reason: Shortness Of Breath Allopurinol (Zyloprim) 150 mg PO [facility] Last Admin: 02/05/17 21:56 Dose: 150 mg Amoxicillin/Clavulanate Potassium (Augmentin 500 Mg) 1 each PO Q12HR [facility] Last Admin: 02/05/17 22:36 Dose: Not Given Arformoterol Tartrate (Brovana Nebu) 15 mcg IH Q12HRT [facility] Last Admin: 02/06/17 07:46 Dose: 15 mcg Bisacodyl (Dulcolax) 10 mg MN QDAY PRN PRN Reason: Constipation unrelieved by MOM Budesonide (Pulmicort) 0.5 mg IH Q12HRT [facility] Last Admin: 02/06/17 07:46 Dose: 0.5 mg Colchicine (Colcrys) 0.3 mg PO QDAY [facility] Last Admin: 02/05/17 10:56 Dose: 0.3 mg Erythromycin (Erythromycin Ophth Oint) 1 applic OU Q8HR [facility] Last Admin: 02/06/17 05:56 Dose: 1 applic Gabapentin (Neurontin) 300 mg PO BID [facility] Last Admin: 02/05/17 21:57 Dose: 300 mg Sodium Chloride (Nacl 0.45% 1000 Ml) 1,000 mls @ 100 mls/hr IV DIRECT [facility] Ketoconazole (Nizoral) 1 applic TP Mo [facility] Last Admin: 02/05/17 10:58 Dose: 1 applic Latanoprost (Xalatan 0.005%) 1 drops OD [facility] Last Admin: 02/05/17 21:56 Dose: 1 drops Loratadine (Claritin) 10 mg PO QDAY [facility] Last Admin: 02/05/17 10:54 Dose: 10 mg Magnesium Oxide (Mag-Ox) 400 mg PO BID [facility] Last Admin: 02/05/17 21:57 Dose: 400 mg Megestrol Acetate (Megace) 400 mg PO QDAY [facility] Last Admin: 02/05/17 12:42 Dose: 400 mg Mirtazapine (Remeron) 15 mg PO [facility] Last Admin: 02/05/17 21:58 Dose: 15 mg Miscellaneous Medication (Dorzolamide Hcl/Timolol Maleat [Cosopt Eye Drops]) 1 drop OP Q8H [facility] Last Admin: 02/03/17 02:18 Dose: 1 drop Ondansetron HCl (Zofran) 4 mg IV Q8H PRN PRN Reason: N/V unrelieved by Reglan Tramadol HCl (Ultram) 50 mg PO Q8H PRN PRN Reason: Pain, Moderate (4-6) Review of Systems ROS unobtainable: due to mental status Exam - Vital Signs Vital signs: Vital Signs Pulse Resp 89 10 L 02/02/17 12:48 02/02/17 12:48 - General Appearance General appearance: appears stated age, chronically ill, frail EENT: ATNC, PERRL, mucous membranes moist Neck: Present: neck supple. Absent: thyromegaly Respiratory: Clear to Ascultation, Other (no wheezing ) Heart: normal heart rate, no murmurs Gastrointestinal: Present: normoactive bowel sounds. Absent: tenderness Integumentary: no rash, warm and dry Neurologic: no focal deficit, alert and oriented x3, gait normal, strength 5/5 Musculoskeletal: Absent: deformities, joint swelling Psychiatric: mood/affect appropriate, cooperative Results - Lab Results 02/05/17 05:05 02/06/17 04:46 Most recent lab results Calcium 9.0 mg/dL (8.4-10.2) 02/06/17 04:46 Assessment and Plan 1. ANGELIA on underlying CKD 3 ANGELIA likely prerenal azotemia/ ATN Renal U/S reviewed. No hydronephrosis seen. He has multiple simple cysts and echogenic kidneys. 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 Urinary tract Infection Continue empiric antibiotics Culture negative x 1 day 3. Acute metabolic/toxic Encephalopathy/ underlying dementia Unclear baseline 4. Hypovolemic hyponatremia IVF started 5. Hypokalemia Replete potassium
[2017-02-06] MEDS ORDERED: NACL 0.9% 1000 ML 1,000 ML ONE (08:27)
[2017-02-06] MEDS ORDERED: NACL 0.9% 1000 ML 1,000 ML IV ONE (09:00)
[2017-02-06] MEDS: CLARITIN PO SCH (09:22)
[2017-02-06] MEDS: NEURONTIN PO SCH ×2 (09:22→22:29)
[2017-02-06] MEDS: MAG-OX PO SCH ×2 (09:22→22:29)
[2017-02-06] MEDS: MEGACE PO SCH (09:23)
[2017-02-06] MEDS: COLCRYS PO SCH (09:23)
[2017-02-06] MEDS: AUGMENTIN 500 MG PO SCH ×2 (09:23→22:29)
--- NOTE | 2017-02-06 16:21 | Progress Note ---
Assessment and Plan / UTI (urinary tract infection) monitor uop q shift, follow cx cont abx to augmentin, /ARF (acute renal failure) on CKD 3 His CR was at 1.29 September 2016 IVF resuscitation, supportive care. renal US showed medical renal disease, baseline unknown Cr increased to 2.9 , consulted nephrology, will follow recommendation /Hyponatremia due to dehydration cont IVF resuscitation as soon as access available, repeat bmp encourage oral intake /Acute metabolic/toxic Encephalopathy now at baseline per family treat UTI, neuro checks, fall precautions, aspiration precautions. /h/o alcohol abuse no acute issue now /right eye conjunctivitis will cont on erythromycin ointment /h/o gout uric acid not elevated on colchicine and allopurinol /DVT prophylaxis heparin Physical exam: General appearance: Present: mild distress, cachectic - EENT Eyes: Present: rt eye congestion with purulent discharge at the [place] E[facility]: hearing intact, clear oral mucosa - Neck Neck: Present: supple, normal ROM - Respiratory Respiratory effort: normal Respiratory: bilateral: diminished - Cardiovascular Heart Sounds: Present: S1 & S2. Absent: rub, click - Extremities Extremities: pulses symmetrical, No edema Peripheral Pulses: within normal limits - Abdominal General gastrointestinal: Present: soft, non-tender, non-distended, normal bowel sounds Male genitourinary: Present: normal - Integumentary Integumentary: Present: clear, dry - Musculoskeletal Musculoskeletal: generalized weakness - Psychiatric Psychiatric: no intact judgment & insight, no memory intact - Neurologic Neurologic: no gait normal Subjective Date of service: 02/06/17 Interval history: pt seen and examined c/o no chest pain or abdominal pain poor appetite, sister at bedside , updated lost his iv access today Objective - Constitutional Vitals: Vital Signs - 12hr 02/06/17 02/06/17 07:47 08:03 Temperature 98.4 F Pulse Rate 73 Pulse Rate [ 71 Anterior Bilateral Throughout] Pulse Rate [ 74 Bilateral] Respiratory 20 Rate Respiratory 16 Rate [Anterior Bilateral Throughout] Respiratory 18 Rate [Bilateral ] Blood Pressure 104/62 O2 Sat by Pulse 89 Oximetry - Labs CBC & Chem 7: 02/05/17 05:05 02/07/17 04:50 Labs: Abnormal lab results 02/06/17 Range/Units 04:46 Sodium 131 L (137-145) mmol/L Potassium 3.4 L (3.6-5.0) mmol/L Chloride 80.9 L (98-107) mmol/L BUN 75 H (9-20) mg/dL Creatinine 2.9 H (0.8-1.5) mg/dL Glucose 113 H (75-100) mg/dL
[2017-02-06] MEDS: ZYLOPRIM PO SCH (22:29)
[2017-02-06] MEDS: REMERON PO SCH (22:29)
[2017-02-06] MEDS: XALATAN 0.005% OD SCH (22:32)
[2017-02-07] MEDS: NACL 0.45% 1000 ML 1,000 ML IV SCH ×3 (01:28→22:04)
[2017-02-07 05:54] LABS: Calcium 8.5 mg/dL (8.4-10.2); Potassium 3.3 mmol/L (3.6-5.0)
[2017-02-07] MEDS: ERYTHROMYCIN OPHTH OINT OU SCH ×3 (06:03→22:09)
[2017-02-07] MEDS: PULMICORT IH SCH ×2 (07:57→20:45)
[2017-02-07] MEDS: BROVANA NEBU IH SCH ×2 (07:57→20:44)
[2017-02-07] MEDS: MAG-OX PO SCH ×2 (09:25→22:25)
[2017-02-07] MEDS: AUGMENTIN 500 MG PO SCH ×2 (09:25→22:15)
[2017-02-07] MEDS: CLARITIN PO SCH (09:25)
[2017-02-07] MEDS: NEURONTIN PO SCH ×2 (09:25→22:16)
[2017-02-07] MEDS: COLCRYS PO SCH (09:25)
[2017-02-07] MEDS: MEGACE PO SCH (09:26)
--- NOTE | 2017-02-07 15:58 | Progress Note ---
Assessment and Plan /Acute metabolic/toxic Encephalopathy now at baseline per family treat UTI, neuro checks, fall precautions, aspiration precautions. /ARF (acute renal failure) on CKD 3 His CR was at 1.29 September 2016 IVF resuscitation, supportive care. renal US showed medical renal disease, baseline unknown Cr increased to 2.9 , consulted nephrology, will cont iv fluid /Hyponatremia due to dehydration cont IVF resuscitation, repeat bmp in the am encourage oral intake / UTI (urinary tract infection) monitor uop q shift, follow cx cont abx to augmentin, /h/o alcohol abuse no acute issue now /right eye conjunctivitis will cont on erythromycin ointment /h/o gout uric acid not elevated on colchicine and allopurinol /DVT prophylaxis heparin Physical exam: General appearance: Present: mild distress, cachectic - EENT Eyes: Present: rt eye congestion with purulent discharge at the [place] E[facility]: hearing intact, clear oral mucosa - Neck Neck: Present: supple, normal ROM - Respiratory Respiratory effort: normal Respiratory: bilateral: diminished - Cardiovascular Heart Sounds: Present: S1 & S2. Absent: rub, click - Extremities Extremities: pulses symmetrical, No edema Peripheral Pulses: within normal limits - Abdominal General gastrointestinal: Present: soft, non-tender, non-distended, normal bowel sounds Male genitourinary: Present: normal - Integumentary Integumentary: Present: clear, dry - Musculoskeletal Musculoskeletal: generalized weakness - Psychiatric Psychiatric: no intact judgment & insight, no memory intact - Neurologic Neurologic: no gait normal Subjective Date of service: 02/07/17 Interval history: pt seen and examined c/o no chest pain or abdominal pain Na level worse today, Cr slightly improved Objective - Constitutional Vitals: Vital Signs - 12hr 02/07/17 02/07/17 02/07/17 07:28 07:57 08:07 Temperature 98.0 F Pulse Rate 99 H Pulse Rate [ 95 H 97 H Anterior Bilateral Throughout] Respiratory 18 Rate Respiratory 18 18 Rate [Anterior Bilateral Throughout] Blood Pressure 123/71 O2 Sat by Pulse 95 95 Oximetry - Labs CBC & Chem 7: 02/05/17 05:05 02/07/17 04:50 Labs: Abnormal lab results 02/07/17 Range/Units 04:50 Sodium 127 L (137-145) mmol/L Potassium 3.3 L (3.6-5.0) mmol/L Chloride 83.0 L (98-107) mmol/L BUN 71 H (9-20) mg/dL Creatinine 2.5 H (0.8-1.5) mg/dL Glucose 109 H (75-100) mg/dL
[2017-02-07] MEDS ORDERED: K-DUR PO ONE (18:00)
--- NOTE | 2017-02-07 18:36 | Progress Note ---
Assessment and Plan - Patient Problems (1) Prerenal azotemia Current Visit: Yes Status: Acute Plan to address problem: Acute kidney injury probably prerenal azotemia. Kidney function is improving. (2) Hyponatremia Current Visit: Yes Status: Acute Plan to address problem: Hyponatremia is worsening. (3) Hypokalemia Current Visit: Yes Status: Acute Plan to address problem: Supplement potassium and follow-up. (4) Encephalopathy Current Visit: Yes Status: Acute Plan to address problem: mental status improving (5) UTI (urinary tract infection) Current Visit: Yes Status: Acute Plan to address problem: Continue antibiotics. Follow-up cultures Subjective Date of service: 02/07/17 Principal diagnosis: acute kidney injury Interval history: Patient seen lying in bed. He wants to go home. He denies any complaints. No chest pain, shortness of breath, nausea vomiting Objective - Exam Narrative Exam: Elderly male lying in bed in no acute distress HEENT: NCAT, pink oral mucous membrane Neck: Supple, no venous distention CVS: S1S2 RRR with no murmur, rub or gallop Chest: Clear to auscultation Abdomen: Protuberant, soft, nontender, no organomegaly, bowel sounds are present Extremities: No edema Neuro: Awake, alert no focal deficits - Vital Signs Vital signs: Vital Signs - 12hr 02/07/17 02/07/17 02/07/17 07:28 07:57 08:07 Temperature 98.0 F Pulse Rate 99 H Pulse Rate [ 95 H 97 H Anterior Bilateral Throughout] Respiratory 18 Rate Respiratory 18 18 Rate [Anterior Bilateral Throughout] Blood Pressure 123/71 O2 Sat by Pulse 95 95 Oximetry 02/07/17 15:32 Temperature 98.9 F Pulse Rate 89 Pulse Rate [ Anterior Bilateral Throughout] Respiratory 18 Rate Respiratory Rate [Anterior Bilateral Throughout] Blood Pressure 104/56 O2 Sat by Pulse 89 Oximetry - Lab 02/05/17 05:05 02/07/17 04:50 Most recent lab results Calcium 8.5 mg/dL (8.4-10.2) 02/07/17 04:50
[2017-02-07] MEDS: XALATAN 0.005% OD SCH (22:08)
[2017-02-07] MEDS: ZYLOPRIM PO SCH (22:15)
[2017-02-07] MEDS: REMERON PO SCH (22:16)
[2017-02-08] MEDS: ERYTHROMYCIN OPHTH OINT OU SCH ×3 (06:11→22:31)
[2017-02-08 06:44] LABS: Potassium 3.3 mmol/L (3.6-5.0)
[2017-02-08] MEDS: NACL 0.45% 1000 ML 1,000 ML IV SCH (07:40)
--- NOTE | 2017-02-08 08:51 | Progress Note ---
Assessment and Plan - Patient Problems (1) Prerenal azotemia Current Visit: Yes Status: Acute Plan to address problem: Acute kidney injury probably prerenal azotemia. Kidney function is improving. (2) Hyponatremia Current Visit: Yes Status: Acute Plan to address problem: Hyponatremia is worsening. Patient was getting hypotonic fluids. Will discontinue half normal saline and repeat sodium (3) Hypokalemia Current Visit: Yes Status: Acute Plan to address problem: Supplement potassium and follow-up. (4) Encephalopathy Current Visit: Yes Status: Acute Plan to address problem: mental status improving (5) UTI (urinary tract infection) Current Visit: Yes Status: Acute Plan to address problem: Continue antibiotics. Follow-up cultures Subjective Date of service: 02/08/17 Principal diagnosis: acute kidney injury Interval history: Patient seen lying in bed. He wants to go home. He denies any complaints. No chest pain, shortness of breath, nausea vomiting Objective - Exam Narrative Exam: Elderly male lying in bed in no acute distress HEENT: NCAT, pink oral mucous membrane Neck: Supple, no venous distention CVS: S1S2 RRR with no murmur, rub or gallop Chest: Coarse breath sounds with few rhonchi Abdomen: Protuberant, soft, nontender, no organomegaly, bowel sounds are present Extremities: No edema Neuro: Awake, alert no focal deficits - Vital Signs Vital signs: Vital Signs - 12hr 02/08/17 02/08/17 00:14 07:28 Temperature 99.1 F 98.6 F Pulse Rate 109 H 90 Respiratory 19 18 Rate Blood Pressure 124/57 134/75 O2 Sat by Pulse 91 94 Oximetry - Lab 02/05/17 05:05 02/08/17 05:29 Most recent lab results Calcium 7.0 mg/dL (8.4-10.2) L D 02/08/17 05:29
[2017-02-08] MEDS: BROVANA NEBU IH SCH ×2 (09:26→20:03)
[2017-02-08] MEDS: PULMICORT IH SCH ×2 (09:26→20:03)
[2017-02-08] MEDS: MEGACE PO SCH (09:59)
[2017-02-08] MEDS: CLARITIN PO SCH (09:59)
[2017-02-08] MEDS: MAG-OX PO SCH ×2 (09:59→22:24)
[2017-02-08] MEDS: AUGMENTIN 500 MG PO SCH ×2 (09:59→22:25)
[2017-02-08] MEDS: COLCRYS PO SCH (09:59)
[2017-02-08] MEDS: NEURONTIN PO SCH ×2 (10:00→22:24)
[2017-02-08] MEDS: K-DUR PO SCH ×2 (10:02→14:27)
[2017-02-08] MEDS ORDERED: K-DUR PO ONE (11:59)
[2017-02-08] MEDS ORDERED: NACL 0.9% 1000 ML 1,000 ML IV SCH (12:00)
[2017-02-08] MEDS ORDERED: KCL 30 MEQ in NACL 0.9% 1000 ML 1,000 ML IV SCH (14:00)
[2017-02-08] MEDS: ZOFRAN IV PRN ×2 (14:41→21:14)
--- NOTE | 2017-02-08 15:41 | Progress Note ---
Assessment and Plan /Acute metabolic/toxic Encephalopathy now at baseline per family treat UTI, neuro checks, fall precautions, aspiration precautions. /ARF (acute renal failure) on CKD 3 His CR was at 1.29 September 2016 now Cr increased upto 2.9 , IVF resuscitation, supportive care. renal US showed medical renal disease, baseline unknown consulted nephrology, will cont iv fluid renal function started to improve, Cr 1.6 today /Hyponatremia due to dehydration will change IVF resuscitation to NS, repeat bmp encourage oral intake / UTI (urinary tract infection) monitor uop q shift, follow cx cont abx to augmentin, /h/o alcohol abuse no acute issue now /right eye conjunctivitis will cont on erythromycin ointment /h/o gout uric acid not elevated on colchicine and allopurinol /poor appetite/oral intake discussed with family about PEG tube, but they do not want that including pt family wants hospice, notified CM /DVT prophylaxis heparin Physical exam: General appearance: Present: mild distress, cachectic - EENT Eyes: Present: rt eye congestion with purulent discharge at the [place] ENT: hearing intact, clear oral mucosa - Neck Neck: Present: supple, normal ROM - Respiratory Respiratory effort: normal Respiratory: bilateral: diminished - Cardiovascular Heart Sounds: Present: S1 & S2. Absent: rub, click - Extremities Extremities: pulses symmetrical, No edema Peripheral Pulses: within normal limits - Abdominal General gastrointestinal: Present: soft, non-tender, non-distended, normal bowel sounds Male genitourinary: Present: normal - Integumentary Integumentary: Present: clear, dry - Musculoskeletal Musculoskeletal: generalized weakness - Psychiatric Psychiatric: no intact judgment & insight, no memory intact - Neurologic Neurologic: no gait normal Subjective Date of service: 02/08/17 Principal diagnosis: acute kidney injury Interval history: pt seen and examined c/o no chest pain or abdominal pain Na level worse today 125, Cr slightly improved Objective - Constitutional Vitals: Vital Signs - 12hr 02/08/17 02/08/17 02/08/17 07:28 08:00 09:26 Temperature 98.6 F Pulse Rate 90 Pulse Rate [ 91 H 91 H Bilateral] Respiratory 18 Rate Respiratory 18 17 Rate [Bilateral ] Blood Pressure 134/75 O2 Sat by Pulse 94 Oximetry 02/08/17 02/08/17 09:27 15:27 Temperature 98.8 F Pulse Rate 93 H Pulse Rate [ Bilateral] Respiratory 18 Rate Respiratory Rate [Bilateral ] Blood Pressure 129/59 O2 Sat by Pulse 92 89 Oximetry - Labs CBC & Chem 7: 02/05/17 05:05 02/09/17 04:12 Labs: Abnormal lab results 02/08/17 Range/Units 05:29 Sodium 125 L (137-145) mmol/L Potassium 3.3 L (3.6-5.0) mmol/L Chloride 88.0 L (98-107) mmol/L BUN 44 H (9-20) mg/dL Creatinine 1.6 H (0.8-1.5) mg/dL Calcium 7.0 L D (8.4-10.2) mg/dL
[2017-02-08 18:12] LABS: Calcium 8.2 mg/dL (8.4-10.2); Chloride 95.1 mmol/L (98-107); Potassium 4.5 mmol/L (3.6-5.0)
[2017-02-08] MEDS: ZYLOPRIM PO SCH (22:24)
[2017-02-08] MEDS: REMERON PO SCH (22:25)
[2017-02-08] MEDS: XALATAN 0.005% OD SCH (22:30)
[2017-02-09 05:17] LABS: Calcium 8.2 mg/dL (8.4-10.2); Chloride 101.1 mmol/L (98-107)
[2017-02-09] MEDS: ERYTHROMYCIN OPHTH OINT OU SCH ×2 (05:28→13:35)
[2017-02-09] MEDS: PULMICORT IH SCH (07:25)
[2017-02-09] MEDS: BROVANA NEBU IH SCH (07:25)
[2017-02-09 07:42] VITALS: BP 108/62
--- NOTE | 2017-02-09 09:08 | Progress Note ---
Assessment and Plan - Patient Problems (1) Prerenal azotemia Current Visit: Yes Status: Acute Plan to address problem: Acute kidney injury probably prerenal azotemia. Kidney function is not significantly changed. Okay to discharge patient from renal standpoint (2) Hyponatremia Current Visit: Yes Status: Acute Plan to address problem: Hyponatremia was worsening. Patient was getting hypotonic fluids. Sodium is back to normal (3) Hypokalemia Current Visit: Yes Status: Acute Plan to address problem: Potassium is back to normal (4) Encephalopathy Current Visit: Yes Status: Acute Plan to address problem: mental status improving (5) UTI (urinary tract infection) Current Visit: Yes Status: Acute Plan to address problem: Continue antibiotics. Follow-up cultures Subjective Date of service: 02/09/17 Principal diagnosis: acute kidney injury Interval history: Patient seen lying in bed. He wants to go home. He denies any complaints. No chest pain, shortness of breath, nausea vomiting Objective - Exam Narrative Exam: Elderly male lying in bed in no acute distress HEENT: NCAT, pink oral mucous membrane Neck: Supple, no venous distention CVS: S1S2 RRR with no murmur, rub or gallop Chest: Coarse breath sounds with few rhonchi Abdomen: Protuberant, soft, nontender, no organomegaly, bowel sounds are present Extremities: No edema Neuro: Awake, alert no focal deficits - Vital Signs Vital signs: Vital Signs - 12hr 02/08/17 02/09/17 23:09 07:32 Temperature 98.6 F 98.6 F Pulse Rate 106 H 86 Respiratory 18 22 Rate Blood Pressure 120/67 108/62 O2 Sat by Pulse 86 95 Oximetry - Lab 02/05/17 05:05 02/09/17 04:12 Most recent lab results Calcium 8.2 mg/dL (8.4-10.2) L 02/09/17 04:12
[2017-02-09] MEDS: COLCRYS PO SCH (09:33)
[2017-02-09] MEDS: MEGACE PO SCH (09:33)
[2017-02-09] MEDS: AUGMENTIN 500 MG PO SCH (09:33)
[2017-02-09] MEDS: MAG-OX PO SCH (09:34)
[2017-02-09] MEDS: CLARITIN PO SCH (09:34)
[2017-02-09] MEDS: NEURONTIN PO SCH (09:34)
--- NOTE | 2017-02-09 11:09 | Discharge Summary ---
Providers - Providers Date of Admission: 02/02/17 15:07 Date of discharge: 02/09/17 Attending physician: ELAINA MCINTOSH 02/03/17 13:54 Consult to PICC Line RN [CONS] Stat Reason For Exam: iv abx Type Line:: Midline 02/03/17 15:45 Consult to PICC Line RN [CONS] Routine Reason For Exam: poor IV acess Type Line:: Midline 02/04/17 20:26 Consult to Wound/ET Nurse [CONS] Routine Reason For Exam: wound eval 02/05/17 10:49 Consult to Physician [CONS] Routine Consulting Provider: SOFI FOSTER Reason For Exam: angelia on ckd Place consult to:: iron carrier nephrology Notified:: yes Phone number called:: [phone] If yes, spoke with:: LUIS MIGUEL Time called:: 11:00 02/08/17 15:41 Consult to Case Management [CONS] Routine Services Needed at Discharge: Other Notified:: cm Additional Physician Instructions: hospice Primary care physician: [employer] Hospitalization Condition: Stable Hospital course: 81 YO Male resident of [facility] with Dementia, Debility, GERD, COPD, presents to ED for evaluation. Pt was lethargic and had decreased cognition, and was unable to provide detailed history. History was taken from SNF staff, ED staff, and medical record. Per SNF staff report patient had decreased oral intake and increased confusion over the past week. EMS notified and patient was transported to [facility] for further evaluation and treatment. Pt seen and evaluated in ED and found to have UTI, ARF, and encephalopathy. Pt treated with IV abx, IVF, and admitted to medical floor for further evaluation and management. Discharge diagnosis and management: /Acute metabolic/toxic Encephalopathy likely from ANGELIA and UTI patient also has underlying dementia now at baseline per family treated UTI, monitored with neuro checks, fall precautions, aspiration precautions. /ARF (acute renal failure) on CKD 3 His CR was at 1.29 September 2016 now Cr increased upto 2.9 , Placed on IVF resuscitation, supportive care. renal US showed medical renal disease, baseline unknown consulted nephrology, renal function started to improve, Cr was 1.6 on discharge /Hyponatremia due to dehydration Improved with NS, repeat bmp showed normal Na encouraged oral intake / UTI (urinary tract infection) monitored uop q shift, negative cx cont abx to augmentin to complete course, /h/o alcohol abuse no acute issue now /right eye conjunctivitis Improved with erythromycin ointment /h/o gout uric acid not elevated on colchicine and allopurinol /poor appetite/oral intake pt on remeron discussed with family about PEG tube, but they did not want feeding tube and that also Pt's wish family wanted hospice, notified CM. patient was discharged to [facility] with hospice. /DVT prophylaxis heparin Physical exam: General appearance: Present: mild distress, cachectic - EENT Eyes: Present: rt eye congestion with purulent discharge at the [place] E[facility]: hearing intact, clear oral mucosa - Neck Neck: Present: supple, normal ROM - Respiratory Respiratory effort: normal Respiratory: bilateral: diminished - Cardiovascular Heart Sounds: Present: S1 & S2. Absent: rub, click - Extremities Extremities: pulses symmetrical, No edema Peripheral Pulses: within normal limits - Abdominal General gastrointestinal: Present: soft, non-tender, non-distended, normal bowel sounds Male genitourinary: Present: normal - Integumentary Integumentary: Present: clear, dry - Musculoskeletal Musculoskeletal: generalized weakness - Psychiatric Psychiatric: no intact judgment & insight, no memory intact - Neurologic Neurologic: no gait normal Disposition: DC/TX-03 SNF [facility] Time spent for discharge: 32 minutes Core Measure Documentation - Palliative Care Palliative Care/ Comfort Measures: Hospice Care - Core Measures Any of the following diagnoses?: history only Exam - Constitutional Vitals: Temp Pulse Resp BP Pulse Ox 98.6 F 86 22 108/62 95 02/09/17 07:32 02/09/17 07:32 02/09/17 07:32 02/09/17 07:32 02/09/17 07:32 Plan Activity: up only with assistance Weight Bearing Status: Non-Weight Bearing Diet: other (GI soft diet, ensure three times a day) Follow up with: PRIMARY CARE, [Primary Care Provider] - 3-5 Days
[2017-02-10] MEDS ORDERED: KETOCONAZOLE TP SCH (10:00)
--- NOTE | 2017-02-14 15:19 | Query-Infection ---
Dear Cristobal Date:____02/14/17 Flavor Extractor/CDS:___Amor / Shaun Phone#:__[phone] Exercise your independent professional judgment when responding to this query. Questions asked do not imply a particular answer is desired or expected. We greatly appreciate your clarification on this issue. Clinical Documentation States: The H&P (Dr. Roth) states " 81 YO Male resident of [facility] with Dementia, Debility, GERD, COPD, presents to ED for evaluation. Pt is lethargic and has decreased cognition, and unable to provide detailed history " The Discharge summary (Dr. Jain) states " Discharge diagnosis and management : /Acute metabolic/toxic Encephalopathy likely from ANGELIA and UTI / UTI (urinary tract infection) " WBC: 11.1 Pulse rate: 105 Respiratory rate: 26 Medications: IV ceftriaxone Clinical findings show: (please check applicable parameters) Infection, known /suspected, with some of the following indicators; Specify the infection: 3 General parameters [ ] Fever (core temp >38.30C or 100.40F) [ ] Hypothermia (core temp <36C) [ ] Heart rate >90 bpm [ ] Tachypnea: >20 bpm or pCO2 < 32 mmHg [ ] Altered mental status [ ] Significant edema / +ve fluid balance (>20 ml/kg 24 h) [ ] Hyperglycemia (Bl. glucose >110 mg/dl) w/o diabetes Inflammatory parameters [ ] Leukocytosis (white blood cell count >12,000/l) [ ] Leukopenia (white blood cell count <4,000/l) [ ] Bandemia (immature WBC > 10%) [ ] Leucocyte Left Shift [ ] Plasma procalcitonin>2 SD above the normal value Hemodynamic and tissue perfusion parameters [ ] Arterial hypotension(SBP <90 mmHg, MAP <70 mmHg,or a SBP drop >40 mmHg in adults) [ ] Hyperlactatemia (>3 mmol/l) [ ] Anion Gap (> 11mEG/l) [ ] Decreased capillary refill or mottling Organ dysfunction parameters [ ] Arterial hypoxemia (PaO2/FIO2 <300) [ ] Creatinine increase =0.5 mg/dl [ ] Acute oliguria (urine output <0.5 ml | kg |h or 45 mM/l for at least 2 hrs) [ ] Coagulation abnormalities (INR >1.5 or activated partial thromboplastin time >60 s) [ ] Ileus (absent jeannette wel sounds) [ ] Thrombocytopenia (platelet count <100,000/l) [ ] Hyperbilirubinemia (plasma total bilirubin >4 mg/dl) According to the clinical indications above, can Bacteremia be further specified? If so, please indicate below and in your Progress Notes and/ or Discharge Summary. Indicate if the condition was present on admission. PHYSICIAN RESPONSE: [ ] Sepsis [ ] Severe Sepsis [ ] Septic Shock [ ] Septicemia [ x] Sepsis now resolved [ ] SIRS due to non-infectious cause with organ dysfunction [ ] SIRS due to non-infectious cause without organ dysfunction [ ] Other: [ ] Comment/Explanation: Present on Admission: [x ] Yes (Y) [ ] Clinically undeterminable (W) [ ] No (N) [ ] Ruled Out Please also document response in your Progress Notes and/or Discharge Summary and indicate if the condition was present on admission Notes: SIRS/ SIRS WITH ORGAN DYSFUNCTION Systemic inflammatory response syndrome (SIRS) generally refers to the systemic response to trauma/gonzalez or other insult such as Acute Myocardial Infarction, Acute Pancreatitis, and Major Surgery with symptoms including fever, tachycardia , tachypnea, and leukocytosis (1). BACTEREMIA Presence of viable bacteria in the circulating blood (2). This term is reserved for patients that do not manifest above SIRS response. SEPTICEMIA Generally refers to a systemic disease associated with the presence of pathological microorganisms or toxins in the blood, which can include bacteria, viruses, fungi or other organisms (1). SEPSIS Generally refers to SIRS due infection (1). SEVERE SEPSIS Generally refers to sepsis associated with acute organ dysfunction (1). SEPTIC SHOCK Generally refers to circulatory failure associated with severe sepsis (2), and defined as hypotension or hypoperfusion despite adequate fluid resuscitation (1 hour) (3). REFERENCES: 1. [place] [employer]/Society of Critical Care Medicine Consensus Conference. Definitions for sepsis and organ failure and guidelines for the use of innovative therapies in sepsis. Critical Care Med 1992;20:864 - 74. 2. Lev y MM, Liam MP, Tristin EDEDEE, Marco A E, Mayito D, Aly D, Rosario J, [place] SM , Sriram JL, Good G; International Sepsis Definitions Conference. 2001 SCCM/ESICM/ACCP/ATS/SIS International Sepsis Definitions Conference. Intensive Care Med. 2002;29(4):530-8. Epub 2002May 23. Review. PubMed PMID:[id number] 3. ICD-9-CM Official Guidelines for Coding and Reporting 4. Medscape Drugs, Diseases and Procedures references 5. [employer] Textbook of Internal Medicine. 18th Edition MTDD
== END 2017-02-09 14:00 | DRG 871 ==
LOC: ED 11:14 → 3A 15:07
PROVIDERS: ADMIT Internal Medicine; ATTEND Internal Medicine
DX: A41.9 Sepsis, unspecified organism (principal); G92 Toxic encephalopathy; N17.9 Acute kidney failure, unspecified; E87.1 Hypo-osmolality and hyponatremia; N39.0 Urinary tract infection, site not specified; H10.31 Unspecified acute conjunctivitis, right eye; N18.3 Chronic kidney disease, stage 3 (moderate); E86.0 Dehydration; M10.9 Gout, unspecified; K21.9 Gastro-esophageal reflux disease without esophagitis; J44.9 Chronic obstructive pulmonary disease, unspecified; F03.90 Unspecified dementia, unspecified severity, without behavioral disturbance, psychotic disturbance, mood disturbance, and anxiety; E86.9 Volume depletion, unspecified; Z60.2 Problems related to living alone; E87.6 Hypokalemia; E86.1 Hypovolemia; Z72.89 Other problems related to lifestyle; Z79.899 Other long term (current) drug therapy
CPT/HCPCS: 36415; 71010; 76770; 80048; 80053; 80074; 81001; 82962; 84550; 85025; 87040; 87086; 94640; 94760; 96374; J0696; J2405; J3480; J7030